=== PATIENT | female | born 1955 | race American Indian/Alaskan Native ===

== ENCOUNTER 2023-04-25 15:19 | Emergency (ER) | payer BC ==
[2023-04-25 15:31] VITALS: BP 130/64; PULSE 64; RESP 16; TEMP 98.6; BMI 22.0
[2023-04-25] MEDS ORDERED: IBUPROFEN 400 MG TABLET (FP) PO ONE ×2 (15:43→15:49)
== END 2023-04-25 17:32 | disposition home or self-care (01) ==
LOC: FER 15:19
DX: S52.591A Other fractures of lower end of right radius, initial encounter for closed fracture (principal); S52.601A Unspecified fracture of lower end of right ulna, initial encounter for closed fracture; S92.352A Displaced fracture of fifth metatarsal bone, left foot, initial encounter for closed fracture; S50.11XA Contusion of right forearm, initial encounter; R22.31 Localized swelling, mass and lump, right upper limb; W18.39XA Other fall on same level, initial encounter; X50.1XXA Overexertion from prolonged static or awkward postures, initial encounter
CPT/HCPCS: 73110-TC-RT-FY; 73130-TC-RT-FY; 73610-TC-LT-FY; 73630-TC-LT; 99284-25